=== PATIENT | female | born 1960 | race Asian ===

== ENCOUNTER 2018-10-24 13:08 | Emergency (ER) | payer OTHER, MEDICAID ==
[~2018-10-24] VITALS: Ht 160 cm; Wt 59.0 kg
[2018-10-24 13:19] VITALS: BP 122/87
--- NOTE | 2018-10-24 13:25 | NUR ---
PT TO ED WITH C/O CHEST PAIN X 2 DAYS WITH INCREASING PRESSURE LIKE PAIN ON EXERTION. PT DENIES ANY SOB. NO EDEMA NOTED. PULSES ARE EVEN AND REGULAR. HEART SOUNDS PRESENT AND REGULAR, WITH NO MURMURS HEARD. NO APPARENT DISTRESS NOTED. PT PLACED INTO BED, ALICIA ONEAL.
[2018-10-24] MEDS ORDERED: KETOROLAC 30 MG/ML VIAL IVP ONE (13:55)
[2018-10-24] MEDS ORDERED: ASPIRIN 81 MG TAB.CHEW PO ONE (13:55)
--- NOTE | 2018-10-24 14:00 | NUR ---
CLINICAL TECHNICIAN AT BEDSIDE
[2018-10-24 14:25] LABS: BASOPHILS % (AUTO) 0.6 % (0.0-2.0); EOSINOPHILS # (AUTO) 0.1 K/uL (0-0.4); EOSINOPHILS % (AUTO) 1.1 % (0.0-4.0); HEMATOCRIT 35.8 % (36-48); LYMPHOCYTES # (AUTO) 1.8 K/uL (2.5-16.5); LYMPHOCYTES % (AUTO) 31.3 % (20.5-51.1); MEAN CORPUSCULAR HEMOGLOBIN 32 pg (27-31); MEAN CORPUSCULAR HGB CONC 33 g/dL (33-37); MEAN CORPUSCULAR VOLUME 96.6 fL (80-94); MONOCYTES # (AUTO) 0.4 K/uL (0.8-1.0); MONOCYTES % (AUTO) 6.4 % (1.7-9.3); NEUTROPHILS # (AUTO) 3.6 K/uL (1.8-7.7); NEUTROPHILS % (AUTO) 60.6 % (42.2-75.2); PLATELET COUNT (AUTO) 157 K/uL (140-450); RED BLOOD CELL COUNT(AUTO) 3.71 MIL/uL (4.20-5.40); RED CELL DISTRIBUTION WIDTH 12.9 % (11.6-13.7); WHITE BLOOD COUNT (AUTO) 5.9 K/uL (4.8-10.8)
[2018-10-24 14:35] LABS: ANION GAP 10.2 (8-16); CREATININE 0.5 mg/dL (0.6-1.3); POTASSIUM 4.2 mmol/L (3.5-5.1)
[2018-10-24 14:41] LABS: ALBUMIN 3.3 g/dL (3.4-5.0); TOTAL BILIRUBIN 0.3 mg/dL (0.0-1.0)
[2018-10-24 15:14] VITALS: BP 116/79
== END 2018-10-24 15:15 | disposition home or self-care (01) ==
LOC: MED 13:08
DX: R07.9 Chest pain, unspecified (principal); R42 Dizziness and giddiness; I10 Essential (primary) hypertension; Z85.3 Personal history of malignant neoplasm of breast
CPT/HCPCS: 36415; 71045; 80053; 84484; 85025; 93005; 96374; 99284; J1885; Q0092